=== PATIENT | female | born 1980 | race African-American/Black ===

== ENCOUNTER → 2016-06-28 | Emergency (ER) | payer OTHER ==
[~2016-06-28] VITALS: Ht 160 cm; Wt 56.7 kg
[~2016-06-28] MED LIST: Bacitracin Oint UD TOPIC ONE; Cephalexin 500mg cap ORAL ONE; IBUPROFEN600 MG ORAL; KEFLEX500 MG ORAL; TdaP Vaccine 0.5ml Syr IM ONE
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
[2016-06-28 14:45] VITALS: BP 138/76
--- NOTE | 2016-06-29 08:31 | Diagnostic Imaging Report ---
\H\CT Brain without Intravenous Contrast INDICATION: \N\Headache.\H\ COMPARISON: \N\None\H\ TECHNIQUE: Serial axial images were obtained from the the skull base through the vertex without intravenous contrast. Coronal reformats were obtained. Dose Estimate: Total DLP \N\1439\H\ mGycm CTDIvol \N\70\H\ mGy FINDINGS: The muro white matter differentiation appears normal. There is no evidence of acute intracranial hemorrhage or territorial infarct. The cortical sulci, ventricles and extra-axial CSF spaces are normal in size for patient's age. There is no space occupying lesion, mass effect or midline shift. The visualized paranasal sinuses and mastoid air cells are clear. The osseous structures are unremarkable. Soft tissue swelling/hematoma with intervening air pockets is noted in the right frontal region. \N\\H\IMPRESSION: 1. Right frontal scalp soft tissue hematoma and laceration. No evidence of acute intracranial hemorrhage, mass effect or midline shift. \N\
== END ==
LOC: EDBD 11:27 → EMR 12:10
DX: S01.81XA Laceration without foreign body of other part of head, initial encounter (principal); S00.03XA Contusion of scalp, initial encounter; Y08.89XA Assault by other specified means, initial encounter; Y92.512 Supermarket, store or market as the place of occurrence of the external cause; Z23 Encounter for immunization; R51 Headache
CPT/HCPCS: 70450; 90471; 90715